=== PATIENT | female | born 1935 | race Two or more races ===

== ENCOUNTER 2021-11-19 07:17 | Day surgery (SDC) | payer OTHER ==
[~2021-11-19] VITALS: Ht 157.5 cm; Wt 45.4 kg
[~2021-11-19 07:17] MED LIST: AMBIEN10 MG PO; CILOSTAZOL100 MG PO; CLARITIN10 M2 PO; CLONAZEPAM0.5 MG PO; COZAAR50 MG PO; CRESTOR10 MG PO; GABAPENTIN600 MG PO; PEPCID20 MG PO; ULTRAM50 MG PO; XARELTO2.5 MG PO; [UNRECOGNIZED DRUG - OTHER] PO
== END 2021-11-19 11:35 | disposition home or self-care (01) ==
LOC: CIR.AMB 07:17
PROVIDERS: ATTEND Anesthesiology Pain Medicine
DX: M50.11 Cervical disc disorder with radiculopathy, high cervical region (principal); Z20.822 Contact with and (suspected) exposure to COVID-19; M99.61 Osseous and subluxation stenosis of intervertebral foramina of cervical region; I10 Essential (primary) hypertension; Z79.01 Long term (current) use of anticoagulants; F17.210 Nicotine dependence, cigarettes, uncomplicated